=== PATIENT | female | born 1975 | race Caucasian/White ===

== ENCOUNTER 2017-05-19 10:52 | Inpatient (IN) | payer SELFPAY ==
[~2017-05-19] VITALS: Ht 172.7 cm; Wt 72.6 kg
[2017-05-19 11:02] VITALS: BP 162/95
--- NOTE | 2017-05-19 11:02 | NUR ---
PT W/C ASSISTED TO BED 2.
--- NOTE | 2017-05-19 11:07 | NUR ---
Patient being evaluated by dr bruce at bedside.
--- NOTE | 2017-05-19 11:07 | NUR ---
PT BIB FRIEND VIA W/C; C/O RLQ SHARP PAIN RADIATES TO RIGHT LOWER BACK SINCE THIS MORNING WITH NAUSEA, DENIES VOMITING, DIARRHEA. PT HAS PERIOD X 3 DAYS. HX DENIES.AAOX4. PATIENT STATES PAIN OF 10/10 AT THIS TIME. PATIENT POSITIONED FOR COMFORT; HOB ELEVATED; BEDRAILS UP X2; BED DOWN. ER MD MADE AWARE OF PT STATUS.
[2017-05-19] MEDS ORDERED: KETOROLAC 30 MG/ML VIAL IVP ONE (11:10)
--- NOTE | 2017-05-19 11:47 | NUR ---
lab at bedside
[2017-05-19 12:07] LABS: BASOPHILS # (AUTO) 0.2 K/uL (0.00-0.22); BASOPHILS % (AUTO) 1.6 % (0.0-2.0); EOSINOPHILS # (AUTO) 0.1 K/uL (0-0.4); EOSINOPHILS % (AUTO) 0.9 % (0.0-4.0); HEMATOCRIT 35.9 % (36-48); LYMPHOCYTES # (AUTO) 1.1 K/uL (2.5-16.5); LYMPHOCYTES % (AUTO) 8.1 % (20.5-51.1); MEAN CORPUSCULAR HEMOGLOBIN 28 pg (27-31); MEAN CORPUSCULAR HGB CONC 33 g/dL (33-37); MEAN CORPUSCULAR VOLUME 83 fL (80-94); MONOCYTES # (AUTO) 0.9 K/uL (0.8-1.0); MONOCYTES % (AUTO) 6.4 % (1.7-9.3); NEUTROPHILS # (AUTO) 11.4 K/uL (1.8-7.7); PLATELET COUNT (AUTO) 295 K/uL (140-450); RED BLOOD CELL COUNT(AUTO) 4.34 MIL/uL (4.20-5.40); RED CELL DISTRIBUTION WIDTH 13.1 % (11.6-13.7); WHITE BLOOD COUNT (AUTO) 13.7 K/uL (4.8-10.8)
[2017-05-19 12:14] LABS: APPEARANCE,URINE TURBID (CLEAR); BILIRUBIN,URINE 1+ (NEGATIVE); BLOOD, URINE 3+ (NEGATIVE); COLOR,URINE RED (YELLOW); LEUKOCYTE ESTERASE ,URINE NEGATIVE (NEGATIVE); NITRITE, URINE POSITIVE (NEGATIVE); PH,URINE 7.5 (5.0-9.0); UGLUCOSE NEGATIVE (NEGATIVE)
[2017-05-19] MEDS ORDERED: fentaNYL 0.05 MG/ML VIAL ONE ×2 (12:16→12:34)
[2017-05-19 12:20] LABS: RBC,URINE 50-80 /HPF (0-5); WBC,URINE 0-5 (RARE) /HPF (0-5)
--- NOTE | 2017-05-19 13:35 | NUR ---
Dr. Munroe reevaluating patient.
[2017-05-19 13:37] LABS: ANION GAP 19.9 (8-16); CARBON DIOXIDE 21.9 mmol/L (21-32); CREATININE 0.9 mg/dL (0.6-1.3); POTASSIUM 3.8 mmol/L (3.5-5.1)
[2017-05-19] MEDS ORDERED: LORazepam 2 MG/ML VIAL IVP ONE (13:40)
[2017-05-19 13:47] LABS: TOTAL BILIRUBIN 0.5 mg/dL (0.0-1.0)
--- NOTE | 2017-05-19 15:10 | NUR ---
PT TAKEN TO CT VIA [employer].
[2017-05-19] MEDS ORDERED: fentaNYL 0.05 MG/ML VIAL IVP ONE ×2 (15:25)
[2017-05-19] MEDS ORDERED: cefTRIAXone 1,000 MG VIAL ONE (15:30)
--- NOTE | 2017-05-19 16:14 | NUR ---
Dr. Munroe reevaluating patient.
[2017-05-19] MEDS ORDERED: NACL 0.9% 1,000 ML IV SCH (16:28)
[2017-05-19] MEDS ORDERED: DOCUSATE SODIUM 100 MG GELCAP PO PRN (16:30)
[2017-05-19] MEDS ORDERED: ONDANSETRON 4 MG/2 ML VIAL IM/IVP PRN (16:30)
[2017-05-19] MEDS ORDERED: HYDROcodone/APAP 7.5/325 MG 1 TAB PO PRN (16:30)
[2017-05-19] MEDS ORDERED: ACETAMINOPHEN 325 MG TAB PO PRN (16:30)
--- NOTE | 2017-05-19 16:31 | NUR ---
Patient appears to be resting comfortably in bed. Vital Signs within normal limits. Respirations even and unlabored.WILL CONTINUE TO MONITOR.
[2017-05-19] MEDS ORDERED: LACTOBACILLUS RHAMNOSUS GG 1 EACH CAP PO SCH (16:40)
[2017-05-19] MEDS ORDERED: LORazepam 2 MG/ML VIAL IVP PRN (16:40)
[2017-05-19] MEDS ORDERED: TAMSULOSIN 0.4 MG CAP PO SCH (16:40)
--- NOTE | 2017-05-19 16:48 | NUR ---
X RAY AT BEDSIDE
[2017-05-19] MEDS ORDERED: NACL 0.9% 1,000 ML IV ONE (16:55)
--- NOTE | 2017-05-19 17:05 | NUR ---
ARRIVED ON THE UNIT WITH 2 ER NURSES. PT IS AWAKE AND ORIENTED. INTRODUCED MYSELF AND UPDATED THE BOARD. PT IS GUARDED. PT ON RM. V/S WITHIN NORMAL RANGE. PAIN IS TOLERABLE PER PT. PT SKIN INTACT. AMBULATORY. ADMINISTERED TELE MONITOR. PT DOES NOT WANT IT ON. PT SAID, "I WILL TAKE IT OFF". ASKED HER WHY. PT STATED, "IT IS BOTHERING ME." PT IS ON HER PERIOD. GAVE PT DISPOSABLE UNDERWEAR AND PADS. PT HAS IV 22G R HAND SL AND 20G LFA SL. MRSA SCREENING DONE. ID BANDS APPLIED. BROWN SOCKS ON. WILL CONTINUE WITH ADMISSION PROCESS.
--- NOTE | 2017-05-19 17:12 | NUR ---
Patient will be admitted to care of DR FLORENCE. Admited to TELE. Will go to room 107B. Belongings list completed. Report to JAM GUILLERMO.
[2017-05-19] MEDS ORDERED: PIPER/TAZO 2.25GM/D5W PREMIX 50 ML IV SCH (18:00)
--- NOTE | 2017-05-19 18:00 | NUR ---
PT GOT DRESSED. TOOK OFF TELE MONITOR. WANTED TO GO HOME. PT C/O LOSING HER PACK OF CIGARETTES. GOT DR. CALI TO SEE PT. EXPLAINED WHY IT IS IMPORTANT THAT SHE DOESN'T LEAVE AMA. EXPLAINED RISKS OF GOING AMA INCLUDING . PT PACING IN HER ROOM. FRIEND IS HERE. WILL WAIT TO SEE WHAT SHE WANTS TO DO.
[2017-05-19 18:02] VITALS: BP 126/54
--- NOTE | 2017-05-19 18:40 | NUR ---
PT SIGNED AMA AFTER SPEAKING TO DR ALMARAZ. EXPLAINED THE RISKS OF LEAVING AMA INCLUDING . PT SIGNED AMA AND LEFT. REMOVED IV ON BOTH ARMS AND ID BANDS. PT IN STABLE CONDITION. LEFT WITH FRIEND.
[2017-05-19 19:01] LABS: CHOL/HDL RATIO 2.3 (1-4.5); FREE T4 (FREE THYROXINE) 1.1 ng/dL (0.76-1.46); MAGNESIUM 1.9 mg/dL (1.8-2.4); THYROID STIMULATING HORMONE 1.06 uIU/mL (0.34-3.74)
== END 2017-05-19 18:40 | disposition left against medical advice (07) | DRG 917 ==
LOC: MED 10:52 → MTU 16:36
PROVIDERS: ADMIT Family Medicine; ATTEND Family Medicine
DX: T43.621A Poisoning by amphetamines, accidental (unintentional), initial encounter (principal); N17.0 Acute kidney failure with tubular necrosis; G92 Toxic encephalopathy; N13.4 Hydroureter; N13.2 Hydronephrosis with renal and ureteral calculous obstruction; N39.0 Urinary tract infection, site not specified; Z88.5 Allergy status to narcotic agent; F17.210 Nicotine dependence, cigarettes, uncomplicated; Z88.2 Allergy status to sulfonamides; F15.10 Other stimulant abuse, uncomplicated; R00.0 Tachycardia, unspecified; Y92.89 Other specified places as the place of occurrence of the external cause; Z53.21 Procedure and treatment not carried out due to patient leaving prior to being seen by health care provider
CPT/HCPCS: 36415; 71045; 76856; 80053; 81001; 81025; 82140; 82150; 83690; 83735; 83880; 84100; 84439; 84443; 84484; 84702; 85025; 87081; 87086; 87186; 96365; 96375; 99285; G0482; J0696; J1885; J2060; J3010; J7060; Q0092; Q9967

== ENCOUNTER 2018-09-20 15:45 | Inpatient (IN) | payer SELFPAY ==
[~2018-09-20] VITALS: Ht 172.7 cm; Wt 88.0 kg
[2018-09-20] MEDS ORDERED: PREN-380 PO (16:12)
[2018-09-20] MEDS ORDERED: LACTATED RINGERS 1,000 ML IV SCH (16:12)
[2018-09-20] MEDS ORDERED: PROMETHAZINE 25 MG/ML VIAL IVP PRN (16:15)
[2018-09-20] MEDS ORDERED: NALBUPHINE 10 MG/ML AMP IVP PRN (16:15)
[2018-09-20] MEDS ORDERED: METHYLERGONOVINE 0.2 MG/ML AMP IM PRN ×2 (16:15→17:35)
[2018-09-20] MEDS ORDERED: CARBOPROST 250 MCG/ML AMP IM PRN (16:15)
[2018-09-20] MEDS ORDERED: AMPICILLIN 2,000 MG VIAL ONE (16:25)
[2018-09-20] MEDS ORDERED: AMPICILLIN 2,000 MG in NACL 0.9% MINI-BAG PLUS 100 ML IV SCH (16:30)
[2018-09-20] MEDS ORDERED: NALBUPHINE 10 MG/ML AMP ONE (16:33)
[2018-09-20] MEDS ORDERED: PROMETHAZINE 25 MG/ML VIAL ONE (16:34)
[2018-09-20] MEDS ORDERED: NALOXONE 0.4 MG/ML VIAL ONE (16:47)
[2018-09-20] MEDS ORDERED: OXYTOCIN 20 UNITS/LR PREMIX 1,000 ML IV ONE (16:49)
[2018-09-20] MEDS ORDERED: OXYTOCIN 10 UNITS/ML VIAL IM PRN (17:35)
[2018-09-20] MEDS ORDERED: MEASLES, MUMPS, AND RUBELLA 1 VIAL SQVAC PRN (17:35)
[2018-09-20] MEDS ORDERED: METHYLERGONOVINE 0.2 MG TAB PO PRN (17:35)
[2018-09-20] MEDS ORDERED: IBUPROFEN 600 MG TAB PO PRN (17:35)
[2018-09-20 18:15] LABS: HEMATOCRIT 24.8 % (36-48); HEMOGLOBIN 7.3 g/dL (12.0-16.0); MEAN CORPUSCULAR HEMOGLOBIN 21 pg (27-31); MEAN CORPUSCULAR HGB CONC 29 g/dL (33-37); MEAN CORPUSCULAR VOLUME 70.7 fL (80-94); PLATELET COUNT (AUTO) 226 K/uL (140-450); RED BLOOD CELL COUNT(AUTO) 3.51 MIL/uL (4.20-5.40); WHITE BLOOD COUNT (AUTO) 15.1 K/uL (4.8-10.8)
[2018-09-20 18:17] LABS: APPEARANCE,URINE SL CLOUDY (CLEAR); BILIRUBIN,URINE NEGATIVE (NEGATIVE); BLOOD, URINE 3+ (NEGATIVE); COLOR,URINE YELLOW (YELLOW); LEUKOCYTE ESTERASE ,URINE 1+ (NEGATIVE); NITRITE, URINE POSITIVE (NEGATIVE); UGLUCOSE NEGATIVE (NEGATIVE)
[2018-09-20 18:25] LABS: BARBITURATE, URINE NEG. ng/ml (NEG <=200); BENZODIAZEPINE, URINE NEG. ng/mL (NEG <=200); CANNABINOID, URINE NEG. ng/mL (NEG <=50); COCAINE, URINE NEG. ng/mL (NEG <=300); OPIATE, URINE NEG. ng/mL (NEG <=2000); PHENCYCLIDINE SCREEN,URINE NEG. ng/mL (NEG <=25)
[2018-09-20 18:29] LABS: ANION GAP 17.1 (8-16); CARBON DIOXIDE 21.5 mmol/L (21-32); CREATININE 0.9 mg/dL (0.6-1.3); POTASSIUM 3.6 mmol/L (3.5-5.1)
[2018-09-20 18:35] LABS: ALBUMIN 1.8 g/dL (3.4-5.0)
[2018-09-20 18:48] LABS: RBC,URINE TOO NUMEROUS TO COUN /HPF (0-5)
[2018-09-20 18:49] LABS: WBC,URINE 60-80 /HPF (0-5)
[2018-09-20 18:52] VITALS: BP 149/101
[2018-09-20 18:58] LABS: TOTAL BILIRUBIN 0.2 mg/dL (0.0-1.0)
[2018-09-20 19:04] LABS: LYMPHOCYTES % (MANUAL) 12 % (20-46)
[2018-09-20] MEDS ORDERED: AMPICILLIN 1,000 MG in NACL 0.9% MINI-BAG PLUS 50 ML IV SCH (20:00)
[2018-09-20] MEDS ORDERED: DOCUSATE SOD/SENNA 50/8.6 MG 1 TAB PO SCH (21:00)
[2018-09-21 10:17] LABS: HEMOGLOBIN 6.9 g/dL (12.0-16.0)
[2018-09-21] MEDS ORDERED: ACETAMINOPHEN 325 MG TAB PO ONE ×2 (17:00→20:20)
[2018-09-21] MEDS ORDERED: diphenhydrAMINE 50 MG CAP PO ONE ×2 (17:00→20:20)
[2018-09-21 21:00] VITALS: BP 159/82
[2018-09-21 21:19] VITALS: BP 158/82
[2018-09-21 21:34] VITALS: BP 152/82
[2018-09-21 22:34] VITALS: BP 150/87
[2018-09-21 22:54] VITALS: BP 152/80
[2018-09-22 07:13] LABS: HEMATOCRIT 24.6 % (36-48); HEMOGLOBIN 7.6 g/dL (12.0-16.0)
--- NOTE | 2018-09-22 09:37 | NUR ---
PATIENT HAS BEEN SCREENED AND CATEGORIZED LOW NUTRITION RISK. PATIENT WILL BE SEEN WITHIN 7 DAYS OF ADMISSION. 09/26/[address]
[2018-09-22] MEDS ORDERED: FERR-252 PO (09:49)
[2018-09-22] MEDS ORDERED: DOCU-299 PO (09:49)
[2018-09-22] MEDS ORDERED: CIPR500T4 PO (09:49)
== END 2018-09-22 21:10 | disposition home or self-care (01) | DRG 806 ==
LOC: MLD 15:45 → MFCC 09-21 07:15
PROVIDERS: ADMIT Obstetrics & Gynecology; ATTEND Obstetrics & Gynecology
PROC: 30233N1 Transfusion of Nonautologous Red Blood Cells into Peripheral Vein, Percutaneous Approach (ICD-10-PCS; principal; 2018-09-21)
PROC: 10E0XZZ Delivery of Products of Conception, External Approach (ICD-10-PCS; 2018-09-21)
DX: O23.43 Unspecified infection of urinary tract in pregnancy, third trimester (principal); O99.324 Drug use complicating childbirth; Z37.0 Single live birth; F15.90 Other stimulant use, unspecified, uncomplicated; Z3A.37 37 weeks gestation of pregnancy; Z88.1 Allergy status to other antibiotic agents; Z88.6 Allergy status to analgesic agent; O90.81 Anemia of the puerperium
CPT/HCPCS: 36415; 59409; 80053; 80305; 81001; 85018; 85025; 86592; 86762; 86886; 86900; 86901; 86920; 87086; 87186; 87340; 87653-90; 90715; J0290; J0696; J2300; J2310; J2550; J2590; J7030; J7060; P9016; Q0163